=== PATIENT | female | born 2000 | race African-American/Black ===

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

== ENCOUNTER 2020-01-21 14:44 | Emergency (ER) | payer MEDICAID ==
[~2020-01-21] VITALS: Ht 162.6 cm; Wt 59.0 kg
[2020-01-21 20:32] VITALS: BP 115/73
== END 2020-01-21 20:33 | disposition home or self-care (01) ==
LOC: ER 14:44
DX: R60.0 Localized edema (principal); J02.9 Acute pharyngitis, unspecified; R51.9 Headache, unspecified
CPT/HCPCS: 73630; 93971; 99284

== ENCOUNTER 2023-12-22 00:59 | Emergency (ER) | payer SELFPAY ==
[~2023-12-22] VITALS: Ht 165.1 cm; Wt 70.0 kg
[2023-12-22 01:13] VITALS: BP 114/51; PULSE 82; TEMP 98.2; O2SAT 100
[2023-12-22 01:37] LABS: CLARITY URINE CLEAR (CLEAR); COLOR URINE YELLOW (YELLOW); GLUCOSE URINE NEGATIVE (NEGATIVE); KETONES URINE NEGATIVE (NEGATIVE); LEUKOCYTE ESTERASE URINE 2+ (NEGATIVE); NITRITE URINE NEGATIVE (NEGATIVE); OCCULT BLOOD URINE 2+ (NEGATIVE); PROTEIN URINE 1+ (NEGATIVE); SPECIFIC GRAVITY URINE 1.011 (1.005-1.030)
[2023-12-22] MEDS: KETOROLAC 30MG/ML VIAL IM ONE (01:40)
[2023-12-22] MEDS ORDERED: IBUP-2029 MT (01:43)
[2023-12-22] MEDS ORDERED: NITR-87 MT (01:43)
[2023-12-22 01:50] VITALS: RESP 18
[2023-12-22 02:31] LABS: SQUAMOUS EPITHELIAL CELL URINE 1+ /lpf (RARE/1+)
[2023-12-22 02:33] LABS: RBC URINE 15-25 /hpf (0-2)
[2023-12-22 02:35] LABS: BACTERIA URINE 1+
== END 2023-12-22 01:57 | disposition home or self-care (01) ==
LOC: ER 01:10
DX: N39.0 Urinary tract infection, site not specified (principal); F41.9 Anxiety disorder, unspecified
CPT/HCPCS: 99283; 81003; 81025; 96372; J1885